=== PATIENT | female | born 1980 | race Caucasian/White ===

== ENCOUNTER 2019-05-21 04:05 | Emergency (ER) | payer MEDICAID, OTHER ==
--- NOTE | 2019-05-21 04:24 | ED Physician Documentation ---
PD HPI ABD PAIN - Stated complaint Stated Complaint: ABD PAIN - Chief complaint Chief Complaint: Abd Pain - History obtained from History obtained from: Patient - History of Present Illness Timing - onset: Last night Timing - details: Abrupt onset, Waxing and waning Pain level now: 6 Quality: Pain Location: RUQ, Epigastric Radiation: Upper back Improved by: No: Eating, Laying still, Vomiting, BM, Position, Meds Worsened by: Eating Associated symptoms: Nausea. No: Fever, Vomiting, Diarrhea, Constipation Similar symptoms before: No diagnosis (similar, milder, self-limited episodes over psst few weeks) Recently seen: Not recently seen Review of Systems Constitutional: reports: Reviewed and negative Cardiac: reports: Reviewed and negative Respiratory: reports: Reviewed and negative GI: reports: Abdominal Pain, Nausea. denies: Vomiting : denies: Dysuria, Frequency, Hematuria Musculoskeletal: reports: Back pain PD PAST MEDICAL HISTORY - Past Medical History Past Medical History: Yes Psych: Bipolar disorder - Past Surgical History Past Surgical History: No - Present Medications Home Medications: Ambulatory Orders Medication Instructions Recorded Confirmed lamoTRIgine [Lamictal] 400 mg PO DAILY 02/26/14 02/26/14 Amlodipine Besylate 10 mg PO DAILY 05/21/19 05/21/19 LORazepam [Ativan] 0.5 mg PO DAILY PRN 05/21/19 05/21/19 Lurasidone HCl [Latuda] 120 mg PO QPM 05/21/19 05/21/19 Ondansetron Odt [Zofran] 4 mg TL Q6H PRN #14 tablet 05/21/19 Oxycodone HCl/Acetaminophen 1 - 2 each PO Q6H PRN #14 tablet 05/21/19 [Percocet 5-325 mg Tablet] Propranolol [Inderal] 40 mg PO DAILY PRN 05/21/19 05/21/19 buPROPion [Wellbutrin Xl] 300 mg PO DAILY 05/21/19 05/21/19 - Allergies Allergies/Adverse Reactions: Allergies Allergy/AdvReac Type Severity Reaction Status Date / Time No Known Drug Allergies Allergy Verified 05/21/19 04:12 - Living Situation Living Arrangement: reports: At home - Social History Does the pt smoke?: No Smoking Status: Never smoker Does the pt drink ETOH?: Yes Does the pt have substance abuse?: No - Immunizations Immunizations are current?: Yes - POLST Patient has POLST: No PD ED PE NORMAL - Vitals Vital signs reviewed: Yes - General General: Alert and oriented X 3, No acute distress, Well developed/nourished - HEENT HEENT: Moist mucous membranes - Neck Neck: Supple, no meningeal sign - Cardiac Cardiac: RRR, No murmur - Abdomen Abdomen: Soft, Non distended, Other (RUQ and epigastric tenderness without margarita ound or guarding) - Back Back: No CVA TTP - Derm Derm: No rash Results - Vitals Vitals: Oxygen O2 Source Room air - Labs Labs: Laboratory Tests 05/21/19 05/21/19 05/21/19 04:25 04:25 06:10 WBC 10.6 RBC 4.74 Hgb 14.2 Hct 43.1 MCV 90.9 MCH 30.0 MCHC 32.9 RDW 12.0 Plt Count 399 MPV 9.8 Neut # (Auto) 6.9 H Lymph # (Auto) 2.3 [place] # (Auto) 1.0 Eos # (Auto) 0.3 Baso # (Auto) 0.1 Absolute Nucleated RBC 0.00 Nucleated RBC % 0.0 Sodium 139 Potassium 3.4 L Chloride 102 Carbon Dioxide 25 Anion Gap 12.0 BUN 11 Creatinine 0.8 Estimated GFR (MDRD) 80 L Glucose 127 H Calcium 9.6 Total Bilirubin 0.3 AST 22 ALT 33 Alkaline Phosphatase 82 Total Protein 8.0 Albumin 4.5 Globulin 3.5 Albumin/Globulin Ratio 1.3 Lipase 54 H Urine Color YELLOW Urine Clarity CLEAR Urine pH 7.0 Ur Specific [place] 1.010 Urine Protein NEGATIVE Urine Glucose (UA) NEGATIVE Urine Ketones NEGATIVE Urine Occult Blood NEGATIVE Urine Nitrite NEGATIVE Urine Bilirubin NEGATIVE Urine Urobilinogen 0.2 (NORMAL) Ur Leukocyte Esterase NEGATIVE Ur Microscopic Review NOT INDICATED Urine Culture Comments NOT INDICATED Urine HCG, Qual NEGATIVE - Rads (name of study) RUQ US Radiology: Prelim report reviewed, See rad report PD MEDICAL DECISION MAKING - ED course Complexity details: reviewed results, re-evaluated patient, considered differential, d/w patient ED course: US reveals gallstone, nonmobile in neck. symptoms well-controlled with toradol and dilaudid Departure - Departure Disposition: 01 Home, Self Care Clinical Impression: Cholelithiasis Condition: Good Instructions: ED Gallstone W Biliary Colic Follow-Up: Amelia Douglas MD [Provider Admit Priv/Credential] - (Call to arrange for next available appointment) Prescriptions: Ondansetron Odt [Zofran] 4 mg TL Q6H PRN #14 tablet PRN Reason: Nausea / Vomiting Oxycodone HCl/Acetaminophen [Percocet 5-325 mg Tablet] 1 - 2 each PO Q6H PRN #14 tablet PRN Reason: pain Discharge Date/Time: 05/21/19 09:01
[2019-05-21] MEDS ORDERED: KETOROLAC 30 MG/ML VIAL IVP STA (04:47)
[2019-05-21] MEDS ORDERED: ONDANSETRON 4 MG/2 ML VIAL IVP STA (04:47)
[2019-05-21] MEDS ORDERED: HYDROmorphone 1 MG/ML SYRINGE IVP STA (05:16)
[2019-05-21 05:24] LABS: BASOPHILS # (AUTO) 0.1 10^3/uL (0.0-0.1); BASOPHILS % (AUTO) 0.7 %; EOSINOPHILS # (AUTO) 0.3 10^3/uL (0.0-0.7); EOSINOPHILS % (AUTO) 2.5 %; HGB - HEMOGLOBIN 14.2 g/dL (12.0-16.0); LYMPHOCYTES # (AUTO) 2.3 10^3/uL (1.5-3.5); LYMPHOCYTES % (AUTO) 21.8 %; MEAN CORPUSCULAR HGB CONC 32.9 g/dL (32.0-36.0); MEAN CORPUSCULAR VOLUME 90.9 fL (81.0-99.0); MEAN PLATELET VOLUME 9.8 fL (7.9-10.8); MONOCYTES % (AUTO) 9.3 %; NEUTROPHILS # (AUTO) 6.9 10^3/uL (1.5-6.6); NEUTROPHILS % (AUTO) 65.3 %; PLT - PLATELET COUNT 399 10^3/uL (130-450); RED BLOOD COUNT 4.74 10^6/uL (4.20-5.40); WHITE BLOOD COUNT 10.6 x10^3/uL (4.8-10.8)
[2019-05-21 05:33] LABS: ALBUMIN 4.5 g/dL (3.2-5.5); ALBUMIN/GLOBULIN RATIO 1.3 (1.0-2.2); BILIRUBIN,TOTAL 0.3 mg/dL (0.2-1.0); CALCIUM 9.6 mg/dL (8.5-10.3); CREATININE 0.8 mg/dL (0.4-1.0)
[2019-05-21 06:29] LABS: BILIRUBIN,URINE NEGATIVE (NEGATIVE); GLUCOSE, URINE (UA) NEGATIVE (NEGATIVE); KETONES,URINE (UA) NEGATIVE (NEGATIVE); LEUKOCYTE ESTERASE, URINE NEGATIVE (NEGATIVE); NITRITE,URINE NEGATIVE (NEGATIVE); OCCULT BLOOD,URINE NEGATIVE (NEGATIVE); PROTEIN,URINE NEGATIVE (NEGATIVE); UROBILINOGEN,URINE 0.2 (NORMAL) E.U./dL (NORMAL)
[2019-05-21 06:36] LABS: CLARITY,URINE CLEAR (CLEAR); HCG UR QUAL NEGATIVE
--- NOTE | 2019-05-21 08:04 | Ultrasound Report ---
Reason: RUQ pain, tenderness Procedure Date: 05/21/2019 Accession Number: [id number] / [id number] Procedure: US - Abdomen Limited CPT Code: Final Report FULL RESULT: EXAM: ABDOMEN ULTRASOUND LIMITED, RUQ EXAM DATE: 05/21/2019 07:31 AM. CLINICAL HISTORY: RUQ pain, tenderness. COMPARISON: None. TECHNIQUE: Real-time scanning was performed with static images obtained. FINDINGS: Liver: Normal in size and echotexture. The right lobe of the liver measures up to 16.3 cm. Main portal vein flow: Hepatopetal. Gallbladder: There is an echogenic shadowing stone in the neck of the gallbladder measuring up to 1.4 cm in diameter. The stone does not move with adjustment in patient positioning. There is layering sludge within the gallbladder. No gallbladder wall thickening or sonographic Motley's sign. There is evidence of adenomyomatosis with multiple foci of comet tail artifact. Biliary System: CBD measures 4 mm. No intrahepatic or extrahepatic ductal dilatation. Other: The right kidney is unremarkable. No right-sided hydronephrosis. Right renal length measures 12.1 cm. The visualized portion of the pancreatic body is unremarkable. The pancreas is mostly obscured by overlying bowel gas. The visualized portion of the IVC is unremarkable. IMPRESSION: 1. Cholelithiasis. There is a non-mobile shadowing stone measuring 1.4 cm located in the neck of the gallbladder. No sonographic evidence of acute cholecystitis. 2. Incidentally noted adenomyomatosis of the gallbladder. RADIA
[2019-05-21] MEDS ORDERED: oxyCODONE 5 MG TABLET PO STA (08:34)
[2019-05-21 08:35] VITALS: BP 126/90
== END 2019-05-21 09:01 | disposition home or self-care (01) ==
LOC: ED 04:05
DX: K80.20 Calculus of gallbladder without cholecystitis without obstruction (principal); D13.5 Benign neoplasm of extrahepatic bile ducts
CPT/HCPCS: 36415; 76705; 80053; 81003; 81025; 83690; 85025; 96374; 96375; 99284; A9270; J1170; 81001; 87086

== ENCOUNTER 2019-06-07 10:00 | Day surgery (SDC) | payer MEDICAID, OTHER ==
[~2019-06-07 10:00] MED LIST: BUPIVACAINE 0.5% PF 30 ML VIAL ONE; LIDOCAINE 1%-EPI 1:100000 20 ML MDV ONE
[2019-06-07] MEDS ORDERED: LIDOCAINE-MPF 2% 5 ML VIAL IM ONE (10:01)
[2019-06-07] MEDS ORDERED: DEXAMETHASONE 4 MG/ML VIAL IVP ONE (10:01)
[2019-06-07] MEDS ORDERED: GLYCOPYRROLATE 1 MG/5 ML VIAL IVP ONE (10:01)
[2019-06-07] MEDS ORDERED: ONDANSETRON 4 MG/2 ML VIAL IVP ONE (10:01)
[2019-06-07] MEDS ORDERED: KETOROLAC 30 MG/ML VIAL IVP ONE (10:01)
[2019-06-07] MEDS ORDERED: PROPOFOL 200 MG/20 ML VIAL IVP ONE (10:01)
[2019-06-07] MEDS ORDERED: MIDAZOLAM 2 MG/2 ML VIAL IVP ONE (10:01)
[2019-06-07] MEDS ORDERED: ROCURONIUM 50 MG/5 ML VIAL IVP ONE (10:01)
[2019-06-07] MEDS ORDERED: LACTATED RINGERS 1,000 ML IV ONE ×2 (10:06→12:27)
[2019-06-07 10:18] LABS: HCG UR QUAL NEGATIVE
[2019-06-07] MEDS ORDERED: CEFOTETAN DISODIUM 1 GM VIAL ONE (10:36)
--- NOTE | 2019-06-07 10:40 | ANESTHESIA ---
Pre-Anesthesia VS, & Labs - Diagnosis symptomatic cholelithiasis - Procedure Lap Lurdes Vital Signs: Temp Pulse Resp BP Pulse Ox 36.3 C L 65 16 108/77 96 06/07/19 10:06 06/07/19 10:06 06/07/19 10:06 06/07/19 10:06 06/07/19 10:06 Height 5 ft 1 in Weight (kg) 86.2 kg Body Mass Index 35.9 - NPO Other (black coffee at 0830.) - Is Patient ?: No Home Medications and Allergies Home Medications: Ambulatory Orders Cholecalciferol (Vitamin D3) [Vitamin D3] 2,000 unit PO DAILY 06/03/19 lamoTRIgine [Lamictal] 400 mg PO DAILY 02/26/14 Amlodipine Besylate 10 mg PO DAILY 05/21/19 LORazepam [Ativan] 0.5 mg PO DAILY PRN 05/21/19 Lurasidone HCl [Latuda] 160 mg PO QPM 05/21/19 Propranolol [Inderal] 40 mg PO DAILY PRN 05/21/19 buPROPion [Wellbutrin Xl] 300 mg PO DAILY 05/21/19 Cholecalciferol (Vitamin D3) [Vitamin D3] 2,000 unit PO DAILY 06/03/19 Allergies/Adverse Reactions: Allergies Allergy/AdvReac Type Severity Reaction Status Date / Time lisinopril AdvReac cough Verified 06/03/19 16:08 Anes History & Medical History - Anesthetic History Anesthesia Complications: reports: No previous complications Family history of Anesthesia Complications: Denies Family history of Malignant Hyperthermia: Denies - Medical History Cardiovascular: reports: Hypertension Pulmonary: reports: None Gastrointestinal: reports: None, Cholelithiasis Urinary: reports: Kidney stones Neuro: reports: None Musculoskeletal: reports: None Endocrine/Autoimmune: reports: None Blood Disorders: reports: None Skin: reports: None Smoking Status: Former smoker (cigar once a week) Psychosocial: reports: Depression, Anxiety, Alcohol (2 drinks a week), Cannabis (almost daily.) - Surgical History Eyes Ears Nose Throat (EENT): Other Urologic: Ureterolithotomy (stones) Exam General: Alert, Oriented x3, Cooperative, No acute distress Dental: WNL Mouth Openin Fingerbreadth Neck Mobility: Normal Mallampati classification: II Thyromental Distance: 4-6 cm Respiratory: Lungs clear, Normal breath sounds, No respiratory distress, No accessory muscle use Cardiovascular: Regular rate, Normal S1, Normal S2, No murmurs Abdomen: Normal bowel sounds, Soft, No tenderness, No hepatospenomegaly, No masses Extremities: No clubbing, No cyanosis, No edema, Normal pulses, No tenderness/swelling Neurological: Normal gait, Normal speech, Strength at 5/5 X4 ext, Normal tone, Sensation intact, Cranial nerves 3-12 NL, Reflexes 2+ Mental/Cognitive Status: Alert/Oriented X3, Normal for patient Cognitive Status: Within normal limits Plan Anesthesia Type: General Consent for Procedure(s) Verified and Reviewed: Yes Code Status: Attempt Resuscitation ASA classification: 2-Mild systemic disease Is this case an emergency?: No
[2019-06-07] MEDS ORDERED: ONDANSETRON 4 MG/2 ML VIAL IVP PRN (10:45)
[2019-06-07] MEDS ORDERED: HYDROmorphone 0.5 MG/0.5 ML SYRINGE IVP PRN (10:45)
[2019-06-07] MEDS ORDERED: oxyCODONE 5 MG TABLET PO PRN (10:45)
[2019-06-07] MEDS ORDERED: BUPIVACAINE 0.5% PF 30 ML VIAL SUBQ ONE ×2 (11:53)
[2019-06-07] MEDS ORDERED: LIDOCAINE 1%-EPI 1:100000 20 ML MDV SUBQ ONE ×2 (11:53)
--- NOTE | 2019-06-07 12:35 | OPERATIVE REPORT ---
Operative Report - General Procedure Date: 06/07/19 Pre-Op Diagnosis: Symptomatic Cholelithiasis Procedure Performed: Laparoscopic Cholecystectomy Post Op Diagnosis: same - Procedure Note Primary Surgeon: Lukas Douglas MD Anesthesia Provider: Angelo Barragan CRNA Anesthesia Technique: General ET tube Pathology: gallbladder Estimated Blood Loss (mL): 20 Indications: 39yo F with RUQ and gallstones. She is increasingly symptomatic. All risks, benefits, and alternatives are discussed and pt wishes to proceed with surgery. Findings: chronic inflammation of the infundibulum Complications: none - Other Other Information/Narrative: The patient was taken to the operating room and placed on operating table in supine position. The abdomen was prepped and draped in sterile fashion and a time out is performed with the team present. Local anesthesia was used to infiltrate each site prior to incision. Using a 15-blade scalpel, a small 5 mm incision was made just to the right of the umbilicus. Using a 5 mm Optiview camera port, the laparoscope was inserted into the abdomen. Once confirmed to be within the peritoneal cavity, the abdomen was insufflated with air. Initial diagnostic laparoscopy showed no injury from initial trocar placement. Three secondary trocars were then placed in the following locations: a 5mm trocar was then placed in the right lateral subcostal margin, a 5mm trocar in the right midclavicular line, and a 12 mm trocar was placed in the midline in the midepigastric area. A blunt grasper was then used to retract the fundus of the gallbladder up over the dome of the liver. A second blunt grasper was used to retract the infundibulum caudally. Using blunt dissection and electrocautery, the cystic duct and cystic artery were identified. These were circumferentially cleaned distally and proximally. There is tissue thickened from chronic inflammation around the infudibulum. The critical view was seen. Once adequate length was obtained, the cystic duct was clipped three times proximally and singly clipped distally. The cystic artery was doubly clipped proximally and singly clipped distally. The cystic duct and cystic artery were then transected using hook scissors. The clips were noted to completely traverse their respective structures with no evidence of bile leakage or bleeding. The remaining peritoneal attachments of the gallbladder and the liver bed were taken down using electrocautery. Once free, the gallbladder was placed into an EndoCatch retrieval bag and removed through the 12 mm port. This required minimal dilatation with a Soni clamp in order to remove the specimen. The gallbladder was then passed off as a specimen. The right upper quadrant was suctioned free of any free fluid. The 12mm port site fascia was reapproximated using an EndoClose device and an 0-vicryl suture. The remainder of the local anesthesia was used to provide local analgesia over each of the port sites. The secondary trocars were removed under direct vision noting no bleeding. The abdomen was allowed to desufflate fully. The final trocar was removed. The skin incisions were then reapproximated using 4-0 Monocryl in an interrupted subcuticular fashion. The abdomen was cleaned and dried and Dermabond was placed over each of the incisions. The patient was awakened and taken to the postanesthesia care unit in stable condition. All counts were correct at the end of the procedure.
[2019-06-07] MEDS ORDERED: ACETAMINOPHEN 1,000 MG/100 ML 100 ML IV ONE (12:51)
[2019-06-07] MEDS ORDERED: ONDANSETRON 4 MG/2 ML VIAL ONE (12:51)
[2019-06-07] MEDS ORDERED: fentaNYL 100 MCG/2 ML VIAL ONE (13:10)
[2019-06-07] MEDS ORDERED: HYDROmorphone 0.5 MG/0.5 ML SYRINGE ONE (13:10)
[2019-06-07 14:16] VITALS: BP 110/62
== END 2019-06-07 10:01 | disposition home or self-care (01) ==
LOC: SDS 10:00
PROVIDERS: ATTEND Surgery
PROC: 0FT44ZZ Resection of Gallbladder, Percutaneous Endoscopic Approach (ICD-10-PCS; principal; 2019-06-07 12:00)
DX: K80.10 Calculus of gallbladder with chronic cholecystitis without obstruction (principal); I10 Essential (primary) hypertension; E66.9 Obesity, unspecified; Z68.35 Body mass index [BMI] 35.0-35.9, adult; F31.9 Bipolar disorder, unspecified; F41.9 Anxiety disorder, unspecified; I49.9 Cardiac arrhythmia, unspecified; Z87.891 Personal history of nicotine dependence; Z72.89 Other problems related to lifestyle
CPT/HCPCS: 47562; 81025; J0131; J1170; J7120